=== PATIENT | female | born 1930 | race Caucasian/White ===

== ENCOUNTER 2017-07-08 15:54 | Emergency (ER) | payer MEDICARE ==
[~2017-07-08] VITALS: Ht 157.5 cm; Wt 56.4 kg
[2017-07-08 16:11] VITALS: BP 156/68; PULSE 69; RESP 15; O2SAT 97
[2017-07-08 18:00] VITALS: BP 139/65; PULSE 64; RESP 20; O2SAT 98
--- NOTE | 2017-07-08 18:11 | ED.REPORT ---
HPI-General Illness Date of Service Jul 08, 2017 ED Provider: Radu Saleem PA-C Charlene is an 87-year-old female with a history of traumatic brain injury, but in for evaluation by her daughter out of concern for increased irritability, agitation over the last 2 days. The patient is a resident at [facility]. Daughter reports that the patient has been more angry, anxious including incidences of throwing herself on the floor at her home, banging her head. Daughter states this is very out of character. She reports an episode of similar symptoms previously, which resolved after treatment of a UTI. Daughter reports a history a few years ago of head injury that resulted in difficulty with speech, hearing. Nursing Notes Stated Complaint: IRRATIONAL,UNUSUAL BEHAVIOR,AGITATION Chief Complaint: General Complaint Nursing Notes Reviewed: Yes Allergies: Coded Allergies: Penicillins (Verified Allergy, Intermediate, 07/08/17) Uncoded Allergies: ANTIDEPRESSANT (Allergy, Unknown, DOESN'T KNOW NAME, 07/08/17) Scheduled Quetiapine Fumarate (Seroquel) 25 Mg Tablet 25 MG PO HS General Time Seen by MD: 17:51 Chief Complaint Other (agitation) Past Medical History Past Medical History Traumatic Brain injury 2009 Review of Systems Patient has extreme difficulty with speech. Physical Exam General: Well appearing, elderly, well nourished, no acute distress. Pleasant. Head: Atraumatic, normocephalic. Eyes: No scleral icterus or injection. No discharge. Vision grossly intact. ENT: Voice clear, hearing grossly intact. Respiratory: Regular rate and rhythm. Breath sounds present, clear to auscultation and equal bilaterally. No respiratory distress. No increased work of breathing, speaks in complete sentences. Cardiovascular: Regular rate and rhythm, without murmur, gallop or rub. No pedal edema. Gastrointestinal: Abdomen flat and non-tender without guarding or rebound. Bowel sounds normoactive. Skin: Warm and dry. Neurological: Patient has extreme difficulty with speech, often limited to repeated sounds are single words. Psychological: Alert and oriented. Speech appropriate, linear and logical. Behavior appropriate. Vital Signs Vital Signs Date Time Temp Pulse Resp B/P Pulse Ox O2 Delivery O2 Flow Rate FiO2 07/08/17 18:00 36.8 64 20 139/65 98 Room Air 07/08/17 16:11 36.5 69 15 156/68 97 Room Air Elevated blood pressure Interpretation & Diagnostics Interpretation & Diagnostics: PROCEDURE: CT BRAIN WITHOUT CONTRAST ([id number]) INDICATIONS: increased agitation IMPRESSION: Moderate atrophic change. No acute abnormality is seen. PROCEDURE: X-RAY CHEST, TWO VIEWS ([id number]) INDICATIONS: increased agitation IMPRESSION: Acute disease is not seen in the two-view chest. Lab Results Interpretation Result Diagram: 07/08/17 1835 07/08/17 1835 Test 07/08/17 18:01 07/08/17 18:15 07/08/17 18:35 Hold Urine Received (Received) Urine Color Straw (YELLOW) Urine Appearance Clear (CLEAR,HAZY) Urine pH 6.5 (5.0-8.0) Urine Specific [place] 1.005 (1.003-1.035) Urine Protein Negativemg/dL (NEG,TRACE) Urine Glucose (UA) Negativemg/dL (NEGATIVE) Urine Ketones Negativemg/dL (NEGATIVE) Urine Occult Blood Negative (NEGATIVE) Urine Nitrite Negative (NEGATIVE) Urine Bilirubin Negative (NEGATIVE) Urine Urobilinogen Normalmg/dL (NORMAL) Urine Leukocyte Esterase Trace (NEGATIVE) Urine RBC 0-2/hpf (0-2) Urine WBC 0-5/hpf (0-5) Urine Epithelial Cells Moderate/hpf (NONE-MOD) Urine Crystals None seen (NONE SEEN) Urine Bacteria None/hpf (NONE-FEW) Urine Hyaline Casts None/lpf (NONE) Urine Granular Casts None seen (NONE SEEN) Urine Waxy Casts None seen (NONE SEEN) Urine Red Blood Cell Casts None seen (NONE SEEN) Urine White Blood Cell Casts None seen (NONE SEEN) Urine Mucus None seen (None Seen) Urine Trichomonas None seen (NONE SEEN) Urine Yeast None (NONE SEEN) Urinalysis Comment None Urine Culture Reflexed Indicated White Blood Count 7.6th/mm3 (3.8-10.1) Red Blood Count 3.97mil/mm3 (3.90-5.20) Hemoglobin 11.9g/dL (12.0-15.6) Hematocrit 37.3% (35.0-46.0) Mean Corpuscular Volume 94.0fL (81-100) Mean Corpuscular Hemoglobin 30.0pg (27.0-35.0) Mean Corpuscular Hemoglobin Concent 31.9% (32.0-37.0) Red Cell Distribution Width 14.9% (12.3-15.4) Platelet Count 213bil/L (150-400) Neutrophils (%) (Auto) 70.7% (40-74) Lymphocytes (%) (Auto) 19.7% (14-46) Monocytes (%) (Auto) 8.7% (4-12) Eosinophils (%) (Auto) 0.5% (0-5) Basophils (%) (Auto) 0.3% (0-3) Sodium Level 141mEq/L (134-144) Potassium Level 3.7mEq/L (3.5-5.2) Chloride Level 101mEq/L (97-108) Carbon Dioxide Level 27mmol/L (18-29) Blood Urea Nitrogen 14mg/dL (8-27) Creatinine 0.69mg/dL (0.57-1.00) Estimat Glomerular Filtration Rate 116mL/min (>59) Glucose Level 92mg/dL (60-99) Calcium Level 8.9mg/dL (8.5-10.1) Total Bilirubin 0.4mg/dL (0.0-1.2) Aspartate Amino Transf (AST/SGOT) 20U/L (0-50) Alanine Aminotransferase (ALT/SGPT) 10U/L (0-32) Alkaline Phosphatase 81U/L (25-165) Total Protein 6.3g/dL (6.4-8.4) Albumin 4.2g/dL (3.4-5.0) Hold Bauer Top Tube Received (Received) Re-Eval/Medical Decision Med Decision/Clinical Course Teja is a 87-year-old female presented with her daughter out of concern for increasing agitation over the last 2 days. Daughter reports a similar episode previously resolved with treatment of urinary tract infection. Patient has a great deal of difficulty communicating due to head injury approximately 8 years ago makes it extremely difficult for her to speak. She indicates no further complaints. The daughter is unaware of any other complaints. Physical examination essentially benign with the exception of the speech difficulties and reduced hearing. The patient will not participate in a formal neurological examination, but is grossly nonfocal with the exception of the existing deficits. Urinalysis is normal, CBC, CMP is essentially normal, repeat Accu- Chek is normal, as well as chest x-ray and head CT ordered after consultation with Dr. Velasquez. Dr. Velasquez met with and examine the patient. This point we are reassured against immediately dangerous causes of her agitation including UTI, pneumonia, sepsis, intercranial bleeding, stroke. I believe she is stable and safe to be discharged to home. The patient and her daughter wished for her to return to [facility]. We believe this is reasonable. The patient provided with 25 mg of Seroquel and observed for approximately half an hour. This is tolerated well. I provide a prescription for 7 additional pills. Advised regarding primary care follow-up, provided emergency return precautions. Patient verbalized understanding of, and consent to, the plan. Discharge & Departure Primary Impression: Agitation Disposition: Home Discharge Condition All VS Reviewed: Yes Condition: Stable Additional Instructions: Evaluation for increasing agitation emergency department includes interview, physical examination, urinalysis, blood work, chest x-ray, head CT all of which are reassuring of this is unlikely to be caused by an immediately dangerous condition. I believe she is stable and safe to go back to her assisted living facility. We have given her a small dose of Seroquel here in the emergency department which should be helpful in stabilizing her mood. I will write a prescription for a small amount more. Please follow up with her primary care provider as soon as possible to continue the evaluation. Return to emergency department for any new or worsening symptoms including one- sided weakness, severe headache, fever. Referrals: Norma Baldwin DO EDSupervising Provider for APC: Jose Velasquez DO copies to: Norma Baldwin Seth PA-C Jul 08, 2017 18:11 EDSupervising Provider for APC: Jose Velasquez Seth PA-C Jul 08, 2017 18:11
[2017-07-08 18:26] LABS: APPEARANCE,URINE CLEAR (CLEAR,HAZY); COLOR,URINE STRAW (YELLOW); OCCULT BLOOD,URINE NEGATIVE (NEGATIVE); PH,URINE 6.5 (5.0-8.0)
[2017-07-08 18:27] LABS: UROBILINOGEN,URINE NORMAL (NORMAL)
[2017-07-08 18:46] LABS: BASOPHILS % (AUTO) 0.3 % (0-3); EOSINOPHILS % (AUTO) 0.5 % (0-5); MONOCYTES % (AUTO) 8.7 % (4-12); NEUTROPHILS % (AUTO) 70.7 % (40-74); Platelet Count 213 bil/L (150-400)
--- NOTE | 2017-07-08 19:13 | DRSVH ---
PROCEDURE: CT BRAIN WITHOUT CONTRAST ([id number]) INDICATIONS: increased agitation TECHNIQUE: Noncontrast 4.5 mm thick angled axial sections acquired from the foramen magnum to the vertex, with c oronal reformats. COMPARISON: None. FINDINGS: Image quality: Good CSF spaces: Basal cisterns are patent. No extra-axial fluid collections. The ventricles are symmet jan in size and shape. Brain: No intracranial bleeds or masses. There is moderate cerebral volume loss for age, with resul tant ventricular and sulcal prominence. There are periventricular and deep white matter chronic smal l vessel ischemic changes. There is mild intracranial internal carotid artery atherosclerosis. Skull and face: Calvarium and visualized facial bones appear intact, without suspicious lesions. Sinuses: Visualized sinuses and mastoids are clear. IMPRESSION: Moderate atrophic change. No acute abnormality is seen. Dictated by: Joel Gamez M.D. on 07/08/2017 at 19:11 Approved by: Joel Gamez M.D. on 07/08/2017 at 19:12
--- NOTE | 2017-07-08 19:36 | DRSVH ---
PROCEDURE: X-RAY CHEST, TWO VIEWS ([id number]) INDICATIONS: increased agitation TECHNIQUE: 2 views of the chest were acquired. COMPARISON: None. FINDINGS: Surgical changes and devices: None. Lungs and pleura: No pleural effusions or pneumothorax. Lungs are clear. Mediastinum: Mediastinal contours are normal. Heart size is normal. Bones and chest wall: Bones are osteoporotic. No suspicious bony abnormalities. Soft tissues appear unremarkable. IMPRESSION: Acute disease is not seen in the two-view chest. Dictated by: Joel Gamez M.D. on 07/08/2017 at 19:34 Approved by: Joel Gamez M.D. on 07/08/2017 at 19:35
[2017-07-08] MEDS ORDERED: QUET25TA PO (22:21)
[2017-07-08 23:11] VITALS: PULSE 78; RESP 16; O2SAT 95
== END 2017-07-08 23:11 | disposition home or self-care (01) ==
LOC: SED 15:54
DX: R45.1 Restlessness and agitation (principal); Z87.820 Personal history of traumatic brain injury; Z88.0 Allergy status to penicillin